=== PATIENT | female | born 1980 | race Hispanic/Latino ===

== ENCOUNTER 2025-02-19 15:19 | Emergency (ER) | payer OTHER ==
[~2025-02-19] VITALS: Ht 160 cm; Wt 84.8 kg
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
[2025-02-19] MEDS: MELOXICAM 7.5 MG TABLET PO ONE (16:06)
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
[2025-02-19] MEDS ORDERED: MELO-108 PO (17:25)
[2025-02-19] MEDS ORDERED: METH-811 PO (17:25)
[2025-02-19 17:33] VITALS: BP 126/76; PULSE 74; RESP 18; TEMP 97.9; O2SAT 99
== END 2025-02-19 17:40 | disposition home or self-care (01) ==
LOC: EDH 15:19
DX: M62.838 Other muscle spasm (principal); M25.512 Pain in left shoulder; R07.89 Other chest pain; M79.602 Pain in left arm; V89.2XXA Person injured in unspecified motor-vehicle accident, traffic, initial encounter; Y93.I9 Activity, other involving external motion; Y92.488 Other paved roadways as the place of occurrence of the external cause; Y99.8 Other external cause status
CPT/HCPCS: 71045; 73030; 73060; 99284